=== PATIENT | female | born 1930 | race Caucasian/White ===

== ENCOUNTER 2016-09-23 06:38 | Inpatient (IN) | payer OTHER ==
[~2016-09-23] VITALS: Ht 149.9 cm; Wt 70.6 kg
[~2016-09-23 06:38] MED LIST: CARDIZEM CD,CA180 MG PO; CITRACAL + D31 EACH PO; FERROUS SULFAT325 MG PO; ICAPS MULTIV1 TABLET PO; LYRICA100 MG PO; METFORMIN HCL500 MG PO; MIRALAX255 GM PO; NASONEX17 GM BOTH NARES; OMEPRAZOLE20 M2 PO; TRAMADOL HCL50 MG PO
[2016-09-23 07:23] LABS: HEMATOCRIT 37.6 % (36.0-46.0); MCHC 31.6 G/DL (30.0-36.0); MCV 97.9 FL (83-99); MEAN PLAT.VOLUME 9.2 uM^3 (9.5-12.4); PLATELET COUNT 284 K/uL (156-360); RBC DIS.WIDTH-CV 12.9 % (11.8-14.6); RBC DIS.WIDTH-SD 44.9 % (39-53); RED BLOOD COUNT 3.84 M/uL (3.80-5.20); WHITE BLOOD COUNT 8.4 K/uL (4.1-10.2)
[2016-09-23 07:44] LABS: POINT-OF-CARE METER ID UU14174212
[2016-09-23 08:05] LABS: ALKALINE PHOSPHATASE 79 IU/L (3-129); ANION GAP 8 MEQ/L (2-14); CHLORIDE 102 MEQ/L (99-109); GFR ESTIMATE (CALCULATED) 35 mL/min/; GLUCOSE 104 mg/dL (70-99); POTASSIUM 4.1 MEQ/L (3.7-5.4); SAMPLE HEMOLYSIS CHECK 0; SAMPLE ICTERIC CHECK 0; SAMPLE LIPEMIA CHECK 0; SODIUM 141 MEQ/L (136-147); TOTAL BILIRUBIN 0.6 MG/DL (0.0-1.0); UREA NITROGEN (BUN) 23 mg/dL (9-23)
[2016-09-23 08:14] VITALS: BP 196/75
[2016-09-23 08:16] LABS: Estimated Average Glucose 128 mg/dL (70-123); HEMOGLOBIN A1c (GLYCOHEMOGLOB) 6.1 % HGB (Below 5.7)
[2016-09-23] MEDS ORDERED: REFRESH OPTIVE15 ML BOTH EYES (08:45)
[2016-09-23 16:00] VITALS: BP 149/62
[2016-09-23 18:33] LABS: HEMATOCRIT 33.8 % (36.0-46.0)
[2016-09-23 19:49] VITALS: BP 167/76
[2016-09-23 23:50] VITALS: BP 162/77
[2016-09-24 03:58] VITALS: BP 138/62
[2016-09-24 08:15] LABS: ANION GAP 11 MEQ/L (2-14); CHLORIDE 103 MEQ/L (99-109); GFR ESTIMATE (CALCULATED) 38 mL/min/; GLUCOSE 107 mg/dL (70-99); POTASSIUM 3.9 MEQ/L (3.7-5.4); SAMPLE HEMOLYSIS CHECK 0; SAMPLE ICTERIC CHECK 0; SAMPLE LIPEMIA CHECK 0; SODIUM 141 MEQ/L (136-147); UREA NITROGEN (BUN) 20 mg/dL (9-23)
[2016-09-24 08:26] VITALS: BP 146/65
[2016-09-24 11:30] VITALS: BP 150/67
[2016-09-24 13:40] LABS: TROP-I INTERPRETATION NEGATIVE; TROPONIN-I 0.02 ng/mL (0.0-0.30)
[2016-09-24 17:44] VITALS: BP 196/97
[2016-09-24 20:10] VITALS: BP 165/72
[2016-09-24 23:50] VITALS: BP 175/74
[2016-09-25 03:51] VITALS: BP 195/79
[2016-09-25 03:53] VITALS: BP 195/79
[2016-09-25 08:30] VITALS: BP 130/60
[2016-09-25 11:30] VITALS: BP 130/60
[2016-09-25 16:30] VITALS: BP 169/72
[2016-09-25 18:45] LABS: ANION GAP 10 MEQ/L (2-14); CHLORIDE 105 MEQ/L (99-109); GFR ESTIMATE (CALCULATED) 32 mL/min/; GLUCOSE 129 mg/dL (70-99); SAMPLE HEMOLYSIS CHECK 0; SAMPLE ICTERIC CHECK 0; SAMPLE LIPEMIA CHECK 0; SODIUM 141 MEQ/L (136-147); UREA NITROGEN (BUN) 21 mg/dL (9-23)
[2016-09-25 20:00] VITALS: BP 151/65
[2016-09-26] VITALS: BP 150/72
[2016-09-26 03:57] VITALS: BP 104/64
[2016-09-26] MEDS ORDERED: LOVENOX30 MG/0.3 SC (07:35)
[2016-09-26] MEDS ORDERED: DOCUSATE SODIU100 MG PO (07:37)
[2016-09-26] MEDS ORDERED: TYLENOL REGULA325 MG PO (07:37)
[2016-09-26] MEDS ORDERED: LIDOCAINE700 MG TD (07:38)
[2016-09-26] MEDS ORDERED: OXYCODONE HCL5 MG PO (07:38)
[2016-09-26 08:51] VITALS: BP 162/85
[2016-09-26 13:34] VITALS: BP 145/74
== END 2016-09-26 14:19 | DRG 470 ==
LOC: 3EAST 06:38 → 2SOUTH 06:38 → 3EAST 15:09 → EDSTATUS 15:11 → SDC 15:11 → 2SOUTH 15:13 → 3EAST 09-26 14:19
PROVIDERS: Orthopaedic Surgery; Physician Assistant
PROC: 0SR901A Replacement of Right Hip Joint with Metal Synthetic Substitute, Uncemented, Open Approach (ICD-10-PCS; principal; 2016-09-23)
DX: M16.12 Unilateral primary osteoarthritis, left hip (principal); I12.9 Hypertensive chronic kidney disease with stage 1 through stage 4 chronic kidney disease, or unspecified chronic kidney disease; I44.1 Atrioventricular block, second degree; N18.9 Chronic kidney disease, unspecified; Z88.2 Allergy status to sulfonamides; Z88.1 Allergy status to other antibiotic agents; E11.22 Type 2 diabetes mellitus with diabetic chronic kidney disease; R41.0 Disorientation, unspecified
CPT/HCPCS: 71010; 80048; 80053; 82948; 83036; 84484; 85014; 85018; 85027; 93005; 94799; 97530 GO; 97530 GP; J0461; J1650; J1885; J2250; J2405; J3010; J7050; J7120; S0020